=== PATIENT | female | born 1990 | race Caucasian/White ===

== ENCOUNTER 2017-10-20 10:29 | Emergency (ER) | payer OTHER ==
[~2017-10-20] VITALS: Ht 157.5 cm; Wt 77.1 kg
[2017-10-20] MEDS ORDERED: METFORMIN HCL500 MG PO (10:37)
[2017-10-20] MEDS ORDERED: LISINOPRIL2.5 M1 PO (10:38)
[2017-10-20] MEDS ORDERED: IBUPROFEN 600600 M1 PO (11:26)
== END 2017-10-20 12:33 ==
LOC: ER 10:29
DX: S00.83XA Contusion of other part of head, initial encounter (principal); I10 Essential (primary) hypertension; W18.39XA Other fall on same level, initial encounter; Y93.89 Activity, other specified; Y92.89 Other specified places as the place of occurrence of the external cause; Y99.8 Other external cause status